=== PATIENT | female | born 1995 | race Caucasian/White ===

== ENCOUNTER 2020-11-18 12:14 | Emergency (ER) | payer OTHER ==
[~2020-11-18] VITALS: Ht 167.6 cm; Wt 52.2 kg
[2020-11-18] MEDS ORDERED: PHOSPHO-TRIN 2250 MG (12:26)
== END 2020-11-18 15:38 | disposition home or self-care (01) ==
LOC: ER 12:14
DX: N39.0 Urinary tract infection, site not specified (principal)